=== PATIENT | female | born 1995 | race Two or more races ===

== ENCOUNTER 2016-07-20 12:38 | Emergency (ER) | payer OTHER ==
[2016-07-20 12:47] VITALS: BP 119/57; PULSE 70; TEMP 98.8; BMI 30.9
--- NOTE | 2016-07-20 13:09 | PDOC ---
History of Present Illness - General Chief Complaint: Sore Throat Stated Complaint: SWOLLEN TONSILS, THRUSH Time Seen by Provider: 07/20/16 13:04 History Source: Patient Exam Limitations: No Limitations - History of Present Illness Initial Comments: 07/20/16 13:07 21 yr female with sore throat for one day and painful urination with brownish discharge. Pt is post 5 weeks breast feeding. No medical history or allergies. Severity: mild Associated Symptoms: denies: fever/chills Past History - Past Medical History Allergies/Adverse Reactions: Allergies Allergy/AdvReac Type Severity Reaction Status Date / Time No Known Allergies Allergy Verified 07/20/16 12:47 Home Medications: Ambulatory Orders NK [No Known Home Medication] 07/20/16 Other medical history: denies - Psycho/Social/Smoking Cessation Hx Suicidal Ideation: No Smoking History: Never smoked Information on smoking cessation initiated: No Hx Alcohol Use: No Drug/Substance Use Hx: No Substance Use Type: None Review of Systems - Review of Systems Able to Perform ROS?: Yes Is the patient limited Qatari proficient: No Constitutional: No: Symptoms Reported HEENTM: Yes: Symptoms Reported, Throat Pain Respiratory: No: Symptoms reported Cardiac (ROS): No: Symptoms Reported ABD/GI: No: Symptoms Reported : No: Symptoms Reported Musculoskeletal: No: Symptoms Reported Integumentary: No: Symptoms Reported Neurological: No: Symptoms reported *Physical Exam - Vital Signs Last Vital Signs Temp Pulse Resp BP Pulse Ox 98.8 F 70 18 119/57 99 07/20/16 12:46 07/20/16 12:46 07/20/16 12:46 07/20/16 12:46 07/20/16 12:46 - Physical Exam General Appearance: Yes: Nourished, Appropriately Dressed HEENT: positive: EOMI, VIRGILIO, TMs Normal, Tonsillar Exudate, Tonsillar Erythema Neck: positive: Supple. negative: Tender, Lymphadenopathy (R), Lymphadenopathy (L) Respiratory/Chest: positive: Lungs Clear, Normal Breath Sounds. negative: Chest Tender Cardiovascular: positive: Regular Rhythm, Regular Rate Gastrointestinal/Abdominal: positive: Normal Bowel Sounds, Soft. negative: Tender Musculoskeletal: positive: Normal Inspection Extremity: positive: Normal Capillary Refill, Normal Inspection, Normal Range of Motion Integumentary: positive: Normal Color, Dry, Warm Neurologic: positive: Fully Oriented, Alert, Normal Mood/Affect, Normal Response , Motor Strength 08/31 Medical Decision Making - Medical Decision Making 07/20/16 13:09 cc: sore throat dysuria no fever or chills no abd pain or vomiting pt is 07/20/16 13:39 rapid strep is negative pt has no fever neg lymphadenopthy pt does not want to take any medication if not necessary we will wait for the throat culture to return and we will notify if positive. 07/20/16 13:51 *DC/Admit/Observation/Transfer Diagnosis at time of Disposition: Pharyngitis Qualifiers: Pharyngitis/tonsillitis etiology: unspecified etiology Qualified Code(s): J02.9 - Acute pharyngitis, unspecified - Discharge Dispostion Disposition: HOME Condition at time of disposition: Good - Referrals Referrals: Nam Murillo MD [Staff Physician] - - Patient Instructions Additional Instructions: gargle with warm salt water 4-5 times a day ice pops, jello soft foods take motrin 600mg (over the counter ibuprofen, advil ) every 6hrs for pain this is safe to use while return to ER if any worsening symptoms
[2016-07-20 13:42] LABS: URINE APPEARANCE CLEAR; URINE BILIRUBIN NEGATIVE (NEGATIVE); URINE BLOOD NEGATIVE (NEGATIVE); URINE COLOR YELLOW; URINE GLUCOSE (UA) NEGATIVE (NEGATIVE); URINE KETONE NEGATIVE (NEGATIVE); URINE LEUK ESTERASE NEGATIVE (NEGATIVE); URINE NITRITE NEGATIVE (NEGATIVE); URINE PROTEIN NEGATIVE (NEGATIVE); URINE UROBILINOGEN NEGATIVE E.U./dl (0.2-1.0)
== END 2016-07-20 13:55 | disposition home or self-care (01) ==
LOC: JERFT 12:38
DX: J02.9 Acute pharyngitis, unspecified (principal)
CPT/HCPCS: 36415; 81003; 84703; 87070; 87077; 87430; 87491; 87591; 99281-25